=== PATIENT | female | born 1960 ===

== ENCOUNTER 2017-01-23 12:52 | Emergency (ER) | payer SELFPAY ==
[2017-01-23 12:53] VITALS: BMI 28.9
[2017-01-23 14:23] VITALS: RESP 18; TEMP 97.8
--- NOTE | 2017-01-23 14:51 | ED PDOC ---
HPI: Back Time Seen by Provider: 01/23/17 14:14 Chief Complaint (Nursing): Back Pain Chief Complaint (Provider): Back Pain History Per: Patient History/Exam Limitations: no limitations Onset/Duration Of Symptoms: Hrs Current Symptoms Are (Timing): Still Present Additional Complaint(s): Tracey Yu is a 56 year old female that presents to the ED with a chief complaint of sharp right-sided lower back pain that she began experiencing this morning while she was bending over brushing her teeth and stood up too quickly. Patient reports that she has experienced similar pain in the past, and that she has not taken any medicine for her pain today. Past Medical History Reviewed: Historical Data, Nursing Documentation, Vital Signs Vital Signs: Last Vital Signs Temp 97.8 F 01/23/17 14:19 Pulse 62 01/23/17 14:19 Resp 18 01/23/17 14:19 BP 145/77 01/23/17 14:19 Pulse Ox 100 01/23/17 14:19 - Medical History PMH: HTN Denies: Chronic Kidney Disease - Surgical History Surgical History: Appendectomy - Family History Family History: States: Unknown Family Hx - Home Medications Home Medications: Ambulatory Orders Medication Instructions Recorded Enalapril Maleate [Enalapril] 5 mg PO DAILY 02/25/15 Acetaminophen [Tylenol 325mg tab] 325 mg PO Q6 PRN #0 tab 03/05/15 Cephalexin [Keflex] 500 mg PO TID 03/05/15 Oxycodone HCl/Acetaminophen 1 tab PO Q4 PRN 03/05/15 [Percocet 5-325 mg Tablet] oxyCODONE/Acetaminophen [Percocet 1 tab PO Q4 PRN #0 tab 03/05/15 5/325 mg Tab] Cyclobenzaprine [Cyclobenzaprine 10 mg PO Q8 PRN #30 tab 06/05/16 HCl] Naproxen [Naprosyn] 500 mg PO BID PRN #30 tab 06/05/16 Cyclobenzaprine [Cyclobenzaprine 10 mg PO Q8H PRN #12 tab 01/23/17 HCl] Ibuprofen [Motrin Tab] 800 mg PO Q6H PRN #20 tab 01/23/17 - Allergies Allergies/Adverse Reactions: Allergies Allergy/AdvReac Type Severity Reaction Status Date / Time No Known Allergies Allergy Verified 06/05/16 16:38 Review of Systems Musculoskeletal: Positive for: Back Pain (right-sided lower back pain) Physical Exam - Reviewed Nursing Documentation Reviewed: Yes Vital Signs Reviewed: Yes - Physical Exam Appears: Positive for: Non-toxic, No Acute Distress Head Exam: Positive for: ATRAUMATIC, NORMOCEPHALIC Skin: Positive for: Normal Color, Warm Eye Exam: Positive for: Normal appearance, EOMI, PERRL ENT: Positive for: Normal ENT Inspection Neck: Positive for: Normal Cardiovascular/Chest: Positive for: Regular Rate, Rhythm Respiratory: Positive for: Normal Breath Sounds. Negative for: Accessory Muscle Use, Respiratory Distress Back: Positive for: Other (midline nontender). Negative for: Normal Inspection ((+) right straight leg raise) Neurologic/Psych: Positive for: Alert, Oriented - ECG O2 Sat by Pulse Oximetry: 100 (RA) Pulse Ox Interpretation: Normal Medical Decision Making Medical Decision Making: Impression: Right-Sided Lower Back Pain Plan: * Flexeril 10 mg PO * Toradol 15 mg IM * Reevaluation Pt reports feeling better on re-evaluation. Scribe Attestation: Documented by Lexii Massey, acting as a scribe for Kate Vann PA-C. Provider Scribe Attestation: All medical record entries made by the Scribe were at my direction and personally dictated by me. I have reviewed the chart and agree that the record accurately reflects my personal performance of the history, physical exam, medical decision making, and the department course for this patient. I have also personally directed, reviewed, and agree with the discharge instructions and disposition. Disposition - Clinical Impression Clinical Impression: Sciatica - Patient ED Disposition Is Patient to be Admitted: No Counseled Patient/Family Regarding: Diagnosis, Need For Followup, Rx Given - Disposition Referrals: [facility] [Outside] Disposition: Routine/Home Disposition Time: 16:19 Condition: GOOD Prescriptions: Cyclobenzaprine [Cyclobenzaprine HCl] 10 mg PO Q8H PRN #12 tab PRN Reason: Muscle Spasm Ibuprofen [Motrin Tab] 800 mg PO Q6H PRN #20 tab PRN Reason: Pain Instructions: Sciatica (ED) Print Language: SWEDISH
[2017-01-23 16:45] VITALS: BP 138/78; PULSE 72; O2SAT 99
== END 2017-01-23 16:45 | disposition home or self-care (01) ==
LOC: H.ER 12:52
DX: M54.5 Low back pain (principal); I10 Essential (primary) hypertension

== ENCOUNTER 2017-05-10 08:09 | Emergency (ER) | payer SELFPAY ==
[2017-05-10 08:09] VITALS: BMI 28.9
[2017-05-10] MEDS ORDERED: Sodium Chloride 0.9% 500 ML IV ONE (08:21)
--- NOTE | 2017-05-10 08:55 | ED PDOC ---
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) Exam Limitations: no limitations - History of Present Illness Timing/Duration: 1/2 hour (prior to arrival) Associated Symptoms: nausea/vomiting Allergies/Adverse Reactions: Allergies No Known Allergies Allergy (Verified 05/10/17 08:11) Home Medications: Ambulatory Orders Enalapril Maleate [Enalapril] 10 mg PO DAILY 02/25/15 Acetaminophen [Tylenol 325mg tab] 325 mg PO Q6 PRN #0 tab 03/05/15 Cephalexin [Keflex] 500 mg PO TID 03/05/15 Oxycodone HCl/Acetaminophen [Percocet 5-325 mg Tablet] 1 tab PO Q4 PRN 03/05/15 oxyCODONE/Acetaminophen [Percocet 5/325 mg Tab] 1 tab PO Q4 PRN #0 tab 03/05/15 Cyclobenzaprine [Cyclobenzaprine HCl] 10 mg PO Q8 PRN #30 tab 06/05/16 Naproxen [Naprosyn] 500 mg PO BID PRN #30 tab 06/05/16 Cyclobenzaprine [Cyclobenzaprine HCl] 10 mg PO Q8H PRN #12 tab 01/23/17 Ibuprofen [Motrin Tab] 800 mg PO Q6H PRN #20 tab 01/23/17 Famotidine [Pepcid] 40 mg PO DAILY 05/10/17 Meclizine [Meclizine*] 25 mg PO Q6 #30 tab 05/10/17 Additional Complaint(s): 56 y/o F who was getting an outpatient ultrasound for chronic abdominal pain when she developed acute onset dizziness, described as room spinning. Patient also reports nausea but denies vomiting. She reports that symptoms might have been triggered by warmth in ultrasound room and not eating today. Symptoms worsen with movement. No chest pain or shortness of breath. Denies back pain. PMD: Ej Brown MD Past Medical History Reviewed: Historical Data, Nursing Documentation, Vital Signs Vital Signs: Last Vital Signs Temp 98.2 F 05/10/17 08:17 Pulse 67 05/10/17 08:17 Resp 18 05/10/17 08:17 BP 176/93 H 05/10/17 08:17 Pulse Ox 99 05/10/17 08:17 - Medical History PMH: GERD, HTN Denies: Chronic Kidney Disease - Surgical History Surgical History: Appendectomy Other surgeries: Partial uterus removal, Left foot surgery 2014 - Family History Family History: States: Unknown Family Hx - Social History Current smoker - smoking cessation education provided: No Alcohol: None Drugs: Denies - Home Medications Home Medications: Ambulatory Orders Medication Instructions Recorded Enalapril Maleate [Enalapril] 10 mg PO DAILY 02/25/15 Acetaminophen [Tylenol 325mg tab] 325 mg PO Q6 PRN #0 tab 03/05/15 Cephalexin [Keflex] 500 mg PO TID 03/05/15 Oxycodone HCl/Acetaminophen 1 tab PO Q4 PRN 03/05/15 [Percocet 5-325 mg Tablet] oxyCODONE/Acetaminophen [Percocet 1 tab PO Q4 PRN #0 tab 03/05/15 5/325 mg Tab] Cyclobenzaprine [Cyclobenzaprine 10 mg PO Q8 PRN #30 tab 06/05/16 HCl] Naproxen [Naprosyn] 500 mg PO BID PRN #30 tab 06/05/16 Cyclobenzaprine [Cyclobenzaprine 10 mg PO Q8H PRN #12 tab 01/23/17 HCl] Ibuprofen [Motrin Tab] 800 mg PO Q6H PRN #20 tab 01/23/17 Famotidine [Pepcid] 40 mg PO DAILY 05/10/17 Meclizine [Meclizine*] 25 mg PO Q6 #30 tab 05/10/17 - Allergies Allergies/Adverse Reactions: Allergies Allergy/AdvReac Type Severity Reaction Status Date / Time No Known Allergies Allergy Verified 05/10/17 08:11 Review of Systems ROS Statement: Except As Marked, All Systems Reviewed And Found Negative Constitutional: Negative for: Fever, Chills Cardiovascular: Negative for: Chest Pain Respiratory: Negative for: Shortness of Breath Gastrointestinal: Positive for: Nausea. Negative for: Vomiting, Abdominal Pain Musculoskeletal: Negative for: Back Pain Neurological: Positive for: Dizziness (and lightheadedness, room spinning). Negative for: Weakness Physical Exam - Reviewed Nursing Documentation Reviewed: Yes Vital Signs Reviewed: Yes - Physical Exam Appears: Positive for: Non-toxic, No Acute Distress Head Exam: Positive for: ATRAUMATIC, NORMAL INSPECTION, NORMOCEPHALIC Skin: Positive for: Normal Color, Warm, Dry Eye Exam: Positive for: EOMI, Normal appearance, PERRL Neck: Positive for: Normal, Painless ROM, Supple Cardiovascular/Chest: Positive for: Regular Rate, Rhythm. Negative for: Murmur Respiratory: Positive for: Normal Breath Sounds. Negative for: Accessory Muscle Use, Respiratory Distress Pulses-Radial (L): 2+ Pulses-Radial (R): 2+ Gastrointestinal/Abdominal: Positive for: Normal Exam, Soft. Negative for: Tenderness Back: Positive for: Normal Inspection. Negative for: Vertebral Tenderness Extremity: Positive for: Normal ROM. Negative for: Pedal Edema, Deformity Neurologic/Psych: Positive for: Alert, Oriented. Negative for: Motor/Sensory Deficits - Laboratory Results Result Diagrams: 05/10/17 08:40 05/10/17 08:40 - ECG O2 Sat by Pulse Oximetry: 99 (RA) Pulse Ox Interpretation: Normal Medical Decision Making Medical Decision Making: Time: 8:20 Initial Plan: --EKG --Labs ordered including cardiac enzymes --NS IV 500 ml at 500 mls/hr --Zofran 4 mg IV --Meclizine 50 mg PO --Pending reevaluation Scribe Attestation: Documented by Nola Porter, acting as a scribe for Elaine Garcia MD Provider Scribe Attestation: All medical record entries made by the Scribe were at my direction and personally dictated by me. I have reviewed the chart and agree that the record accurately reflects my personal performance of the history, physical exam, medical decision making, and the department course for this patient. I have also personally directed, reviewed, and agree with the discharge instructions and disposition. Outpatient U/s ordered by PMD shows "Fatty infiltration of the liver. Otherwise unremarkable examination." EKG shows NSR at 65bpm with normal intervals and no ST changes. Labs grossly normal. Cxray negative. After eating and medication, patient reports that symptoms are resolved. She is ambulating around the ED without issue and is requesting discharge. She was instructed to follow-up with PMD Disposition - Clinical Impression Clinical Impression: Vertigo - Disposition Disposition: Routine/Home Disposition Time: 10:53 Condition: GOOD Additional Instructions: Follow up with PMD within 2 days. Return to ED if condition worsens. Meclizine as needed for dizziness Prescriptions: Meclizine [Meclizine*] 25 mg PO Q6 #30 tab Instructions: Dizziness (ED) Forms: [facility] (Tamazight) Print Language: YORUBA
[2017-05-10 09:09] LABS: BASO % 0.4 % (0.0-2.0); EOS # 0.2 K/uL (0.0-0.7); HEMATOCRIT 42.6 % (34.0-47.0); LYMPH # 1.8 K/uL (1.0-4.3); LYMPH % 19.6 % (20.0-40.0); MEAN CELL VOLUME 92.9 fl (81.0-99.0); MEAN CORPUSCULAR HEMOGLOBIN 31.1 pg (27.0-31.0); MEAN CORPUSCULAR HGB CONC 33.5 g/dL (33.0-37.0); MONO # 0.7 K/uL (0.0-0.8); NEUT # 6.5 K/uL (1.8-7.0); RED CELL DISTRIBUTION WIDTH 13.5 % (11.5-14.5); WHITE BLOOD COUNT 9.3 K/uL (4.8-10.8)
[2017-05-10 09:27] LABS: ALB/GLOB RATIO 1.5 (1.0-2.1); ALKALINE PHOSPHATASE 90 U/L (38-126); ALT/SGPT 39 U/L (9-52); AST/SGOT 24 U/L (14-36); BILIRUBIN,TOTAL 0.5 mg/dl (0.2-1.3); BLOOD UREA NITROGEN 14 mg/dl (7-17); CALCIUM 9.2 mg/dL (8.4-10.2); CARBON DIOXIDE 22 mmol/L (22-30); CHLORIDE 104 mmol/L (98-107); GFR AFRICAN-AMERICAN > 60; GLUCOSE,RANDOM 124 mg/dL (65-105); LIPASE 123 U/L (23-300); MAGNESIUM 1.7 MG/DL (1.6-2.3); PHOSPHOROUS 3.1 mg/dl (2.5-4.5); POTASSIUM 3.9 MMOL/L (3.6-5.0); SODIUM 138 mmol/l (132-148); TOTAL PROTEIN 7.6 G/DL (6.3-8.2)
[2017-05-10 10:54] VITALS: RESP 18; TEMP 97.6
[2017-05-10 10:55] VITALS: O2SAT 99
[2017-05-10 11:06] VITALS: BP 150/74; PULSE 75
--- NOTE | 2017-05-10 12:36 | RAD ---
HISTORY: dizziness COMPARISON: 02/25/2015 FINDINGS: LUNGS: No active pulmonary disease. PLEURA: No significant pleural effusion identified, no pneumothorax apparent. CARDIOVASCULAR: Normal. OSSEOUS STRUCTURES: No significant abnormalities. VISUALIZED UPPER ABDOMEN: Normal. OTHER FINDINGS: None. IMPRESSION: No active disease.
--- NOTE | 2017-05-10 17:33 | CARD ---
APPROVED REPORT EKG Measurement Heart [id number] <Conclusion> Normal sinus rhythm Normal ECG
== END 2017-05-10 11:08 | disposition home or self-care (01) ==
LOC: H.ER 08:09
DX: R42 Dizziness and giddiness (principal); I10 Essential (primary) hypertension; K21.9 Gastro-esophageal reflux disease without esophagitis
CPT/HCPCS: 71010; 80053; 82550; 82553; 82948; 83690; 83735; 84100; 84484; 85025; 93005; 96374; 99284; J2405; J7040

== ENCOUNTER 2017-10-24 17:26 | Emergency (ER) | payer OTHER, SELFPAY ==
[2017-10-24 17:26] VITALS: BMI 28.9
[2017-10-24 17:48] VITALS: BP 180/84; PULSE 73; RESP 18; TEMP 98.3; O2SAT 99
[2017-10-24] MEDS ORDERED: Albuterol-Ipratrop 3 mg / 0.5 (3 ml) UD INH STA (18:14)
--- NOTE | 2017-10-24 18:23 | ED PDOC ---
HPI: Influenza Time Seen by Provider: 10/24/17 17:58 Chief Complaint: Flu-like Symptoms Chief Complaint (Provider): Cough History Per: Patient Exam Limitations: no limitations Onset/Duration Of Symptoms: Days (x 5) Symptoms include: fever, sore throat, cough Additional complaint(s):: Tracey is a 57 y/o female with a history of hypertension who presents to the ED with her daughter complaining of a dry cough that started last Sunday. Patient also states that she had a subjective fever over the weekend which has now resolved. She complains of associated throat pain. Patient states cough is non-productive. PMD: [facility] Past Medical History Reviewed: Historical Data, Nursing Documentation, Vital Signs Vital Signs: Last Vital Signs Temp 98.3 F 10/24/17 17:46 Pulse 73 10/24/17 17:46 Resp 18 10/24/17 17:46 BP 180/84 H 10/24/17 17:46 Pulse Ox 99 10/24/17 17:46 - Medical History PMH: GERD, HTN - Surgical History Surgical History: Appendectomy Other surgeries: hysterectomy - Family History Family History: States: No Known Family Hx - Living Arrangements Living Arrangements: With Family - Social History Current smoker - smoking cessation education provided: No Alcohol: None Drugs: Denies - Home Medications Home Medications: Ambulatory Orders Medication Instructions Recorded Enalapril Maleate [Enalapril] 10 mg PO DAILY 02/25/15 Acetaminophen [Tylenol 325mg tab] 325 mg PO Q6 PRN #0 tab 03/05/15 Cephalexin [Keflex] 500 mg PO TID 03/05/15 Oxycodone HCl/Acetaminophen 1 tab PO Q4 PRN 03/05/15 [Percocet 5-325 mg Tablet] oxyCODONE/Acetaminophen [Percocet 1 tab PO Q4 PRN #0 tab 03/05/15 5/325 mg Tab] Cyclobenzaprine [Cyclobenzaprine 10 mg PO Q8 PRN #30 tab 06/05/16 HCl] Naproxen [Naprosyn] 500 mg PO BID PRN #30 tab 06/05/16 Cyclobenzaprine [Cyclobenzaprine 10 mg PO Q8H PRN #12 tab 01/23/17 HCl] Ibuprofen [Motrin Tab] 800 mg PO Q6H PRN #20 tab 01/23/17 Famotidine [Pepcid] 40 mg PO DAILY 05/10/17 Meclizine [Meclizine*] 25 mg PO Q6 #30 tab 05/10/17 Albuterol HFA [Ventolin HFA 90 1 puff IH ASDIR #1 unit 10/24/17 mcg/actuation (8 g)] Azithromycin [Zithromax] 250 mg PO DAILY #6 tab 10/24/17 Benzonatate 200 mg PO TID PRN #20 capsule 10/24/17 Ibuprofen [Motrin Tab] 800 mg PO Q8 PRN #20 tab 10/24/17 - Allergies Allergies/Adverse Reactions: Allergies Allergy/AdvReac Type Severity Reaction Status Date / Time No Known Allergies Allergy Verified 05/10/17 08:11 Review of Systems ROS Statement: Except As Marked, All Systems Reviewed And Found Negative Constitutional: Positive for: Fever (subjective, resolved) ENT: Positive for: Throat Pain Respiratory: Positive for: Cough (dry) Gastrointestinal: Negative for: Nausea, Vomiting Musculoskeletal: Positive for: Back Pain Neurological: Negative for: Headache, Dizziness Physical Exam - Reviewed Nursing Documentation Reviewed: Yes Vital Signs Reviewed: Yes - Physical Exam Appears: Positive for: Well, Non-toxic, No Acute Distress Head Exam: Positive for: ATRAUMATIC Skin: Positive for: Normal Color, Warm, Dry ENT: Positive for: Nasal Congestion, Pharyngeal Erythema, Tonsillar Swelling Cardiovascular/Chest: Positive for: Regular Rate, Rhythm. Negative for: Murmur Respiratory: Positive for: Rhonchi (b/l), Wheezing (b/l) Extremity: Positive for: Normal ROM Neurologic/Psych: Positive for: Alert, Oriented. Negative for: Motor/Sensory Deficits Medical Decision Making Medical Decision Making: Time: 18:14 Initial Impression: 57 y/o female with flu-like symptoms Initial Plan: --XR Chest 2 Views --Duoneb --Motrin --Rapid Strep Patient feels better after treatment given. Patient is aware of all diagnostic tests results, all questions answered. Prescriptions given for Tessalon Perles, Ventolin inhaler and Zithromax. Patient was referred to clinic for follow up. Scribe Attestation: Documented by Holger Seay, acting as a scribe for Ameena Mcnair PA-C Provider Scribe Attestation: All medical record entries made by the Scribe were at my direction and personally dictated by me. I have reviewed the chart and agree that the record accurately reflects my personal performance of the history, physical exam, medical decision making, and the department course for this patient. I have also personally directed, reviewed, and agree with the discharge instructions and disposition. - ECG O2 Sat by Pulse Oximetry: 99 Pulse Ox Interpretation: Normal Disposition - Clinical Impression Clinical Impression: Bronchitis - Patient ED Disposition Is Patient to be Admitted: No Counseled Patient/Family Regarding: Studies Performed, Diagnosis, Need For Followup, Rx Given - Disposition Referrals: [facility] [Outside] Disposition: Routine/Home Disposition Time: 19:56 Condition: STABLE Additional Instructions: Take prescription medications as directed. Follow up with clinic in 2-3 days. Prescriptions: Albuterol HFA [Ventolin HFA 90 mcg/actuation (8 g)] 1 puff IH ASDIR #1 unit Azithromycin [Zithromax] 250 mg PO DAILY #6 tab Benzonatate 200 mg PO TID PRN #20 capsule PRN Reason: Cough Ibuprofen [Motrin Tab] 800 mg PO Q8 PRN #20 tab PRN Reason: Pain, Moderate (4-7) Instructions: Acute Bronchitis Forms: [facility] (Wolof) Print Language: POLISH
[2017-10-24] MEDS ORDERED: Albuterol-Ipratrop 3 mg / 0.5 (3 ml) UD ONE (18:31)
--- NOTE | 2017-10-25 09:24 | RAD ---
HISTORY: cough COMPARISON: 05/10/2017 TECHNIQUE: Chest PA and lateral FINDINGS: LUNGS: No active pulmonary disease. PLEURA: No significant pleural effusion identified. No pneumothorax apparent. CARDIOVASCULAR: Normal. OSSEOUS STRUCTURES: No significant abnormalities. VISUALIZED UPPER ABDOMEN: Normal. OTHER FINDINGS: None. IMPRESSION: No active disease.
== END 2017-10-24 20:47 | disposition home or self-care (01) ==
LOC: H.ER 17:26
DX: J40 Bronchitis, not specified as acute or chronic (principal); I10 Essential (primary) hypertension; K21.9 Gastro-esophageal reflux disease without esophagitis; Z90.710 Acquired absence of both cervix and uterus

== ENCOUNTER 2018-10-26 23:33 | Emergency (ER) | payer SELFPAY ==
[2018-10-26 23:35] VITALS: BMI 28.9
[2018-10-27 00:07] VITALS: O2SAT 99
--- NOTE | 2018-10-27 00:29 | ED PDOC ---
HPI: Skin/Bite Injury Time Seen by Provider: 10/26/18 23:55 Chief Complaint (Nursing): Abnormal Skin Integrity History Per: Patient History/Exam Limitations: no limitations Additional Complaint(s): Pt is a 58 y/o female with hx of HTN and Anxiety presenting to ED for evaluation of right forearm bruise-like lesion that she noticed 3 hours ago that is mildly painful. States she has never had a lesion such as this before anywhere else in the her body. She denies swelling of the arm or generalized arm pain (only localized to lesion) She denies trauma, fever/chill, cp, sob, or any hx of clots, easy bruising/bleeding or coagulopathy in the past. PMD: None PMHX: HTN, Anxiety Medication: noncompliant with Enalpril 10mg as she ran out NKDA Surg: Appt, Hysterectomy Social: Denies smoking, ETOH or illicit drug use Past Medical History Reviewed: Historical Data, Nursing Documentation, Vital Signs Vital Signs: Last Vital Signs Temp Pulse 72 10/27/18 00:05 Resp 22 10/27/18 00:05 BP 150/72 10/27/18 00:05 Pulse Ox 99 10/27/18 00:05 - Medical History PMH: GERD, HTN Denies: Chronic Kidney Disease - Surgical History Surgical History: Appendectomy - Family History Family History: States: Unknown Family Hx - Home Medications Home Medications: Ambulatory Orders Medication Instructions Recorded Enalapril Maleate [Enalapril] 10 mg PO DAILY 02/25/15 Acetaminophen [Tylenol 325mg tab] 325 mg PO Q6 PRN #0 tab 03/05/15 Cephalexin [Keflex] 500 mg PO TID 03/05/15 Oxycodone HCl/Acetaminophen 1 tab PO Q4 PRN 03/05/15 [Percocet 5-325 mg Tablet] oxyCODONE/Acetaminophen [Percocet 1 tab PO Q4 PRN #0 tab 03/05/15 5/325 mg Tab] Cyclobenzaprine [Cyclobenzaprine 10 mg PO Q8 PRN #30 tab 06/05/16 HCl] Naproxen [Naprosyn] 500 mg PO BID PRN #30 tab 06/05/16 Cyclobenzaprine [Cyclobenzaprine 10 mg PO Q8H PRN #12 tab 01/23/17 HCl] Ibuprofen [Motrin Tab] 800 mg PO Q6H PRN #20 tab 01/23/17 Famotidine [Pepcid] 40 mg PO DAILY 05/10/17 Meclizine [Meclizine*] 25 mg PO Q6 #30 tab 05/10/17 Albuterol HFA [Ventolin HFA 90 1 puff IH ASDIR #1 unit 10/24/17 mcg/actuation (8 g)] Azithromycin [Zithromax] 250 mg PO DAILY #6 tab 10/24/17 Benzonatate 200 mg PO TID PRN #20 capsule 10/24/17 Ibuprofen [Motrin Tab] 800 mg PO Q8 PRN #20 tab 10/24/17 - Allergies Allergies/Adverse Reactions: Allergies Allergy/AdvReac Type Severity Reaction Status Date / Time No Known Allergies Allergy Verified 10/26/18 23:38 Review of Systems Constitutional: Negative for: Fever, Chills Cardiovascular: Negative for: Chest Pain, Palpitations Respiratory: Negative for: Cough, Shortness of Breath Skin: Positive for: Rash Physical Exam - Physical Exam Appears: Positive for: No Acute Distress Head Exam: Positive for: NORMAL INSPECTION Skin: Positive for: Rash (inflammation of superficial veins which presents as a painful induration with erythema, often in a linear or branching configuration forming cords.) ENT: Positive for: Normal ENT Inspection Neck: Positive for: Normal Cardiovascular/Chest: Positive for: Regular Rate, Rhythm, Murmur (+2 systolic) Respiratory: Positive for: Normal Breath Sounds. Negative for: Accessory Muscle Use, Wheezing Pulses-Radial (L): 2+ Pulses-Radial (R): 2+ Extremity: Positive for: Capillary Refill. Negative for: Pedal Edema, Calf Tenderness, Deformity, Swelling - ECG O2 Sat by Pulse Oximetry: 99 Medical Decision Making Medical Decision Makin t/o female with hx of HTN presents with inflammation superficial veins noted on right forearm-- painful induration with erythema in branching configuration forming cords. Diagnosis likely superficial thrombophlebitis, need to rule out DVT Motrin, Warm compress Right Upper Extremity Duplex Motrin 0345 Pt reassessed, appears comfortable, denies any arm pain or discomfort Venous Duplex Right Upper Extremity reviewed- No DVT Reviewed results with patient. Advised Warm compress, Ibuprofen, and F/U with PMD. Will give referral to [facility]. All discussions held via [employer], [id number] Disposition - Clinical Impression Clinical Impression: Superficial thrombophlebitis of arm - Patient ED Disposition Is Patient to be Admitted: No Counseled Patient/Family Regarding: Studies Performed, Diagnosis, Need For Followup - Disposition Referrals: [facility] [Outside] Disposition: Routine/Home Disposition Time: 05:33 Condition: FAIR Additional Instructions: Advised Warm compress, Ibuprofen, and F/U with PMD. Will give referral to [facility]. Instructions: Superficial Phlebitis Forms: [facility] (Czech) Print Language: SALVADOREAN
[2018-10-27 06:26] VITALS: BP 121/68; PULSE 83; RESP 19
--- NOTE | 2018-10-27 11:05 | US ---
Date of service: 10/27/2018 PROCEDURE: Right Upper Extremity Venous Doppler HISTORY: r/u DVT COMPARISON: None available. TECHNIQUE: Right upper extremity deep veins, including the lower internal jugular, subclavian, axillary and brachial veins, were evaluated flow, compressibility and respiratory phasicity. FINDINGS: Normal flow, compressibility and respiratory phasicity was observed in the right upper extremity deep veins. IMPRESSION: No evidence of deep venous thrombosis.
== END 2018-10-27 06:15 | disposition home or self-care (01) ==
LOC: H.ER 23:33
DX: I80.8 Phlebitis and thrombophlebitis of other sites (principal); F41.9 Anxiety disorder, unspecified; I10 Essential (primary) hypertension; K21.9 Gastro-esophageal reflux disease without esophagitis